=== PATIENT | female | born 1995 ===

== ENCOUNTER 2025-02-18 16:39 | Inpatient (IN) | payer BC, OTHER ==
[~2025-02-18] VITALS: Ht 170.2 cm; Wt 115.0 kg
[2025-02-18 16:46] VITALS: BP 140/86
[2025-02-18] MEDS ORDERED: Calcium Carbonate 500 MG Tab Chew PO SCH (17:25)
[2025-02-18] MEDS ORDERED: Misoprostol 200 MCG Tab BC PRN (17:25)
[2025-02-18] MEDS ORDERED: Tranexamic Acid 100 ML IV SCH (17:25)
[2025-02-18] MEDS ORDERED: Lactated Ringer's 1,000 ML IV PRN (17:25)
[2025-02-18] MEDS ORDERED: OXYTOCIN/RINGER'S LACTATE 500 ML IV PRN (17:25)
[2025-02-18] MEDS ORDERED: Misoprostol 200 MCG Tab PR PRN (17:25)
[2025-02-18] MEDS ORDERED: Lactated Ringer's 1,000 ML IV SCH ×2 (17:25)
[2025-02-18] MEDS ORDERED: Acetaminophen 500 MG Tab PO PRN (17:25)
[2025-02-18] MEDS ORDERED: Carboprost Tromethamine 250 MCG/ML 1ML Amp IM PRN (17:25)
[2025-02-18] MEDS ORDERED: FentaNYL Citrate 50 MCG/ML 2 ML Injection IV PRN (17:25)
[2025-02-18] MEDS ORDERED: Methylergonovine Maleate 0.2MG / ML 1ML Amp IM PRN (17:25)
[2025-02-18] MEDS ORDERED: Ondansetron HCl 2 MG / ML 2ML Vial IV PRN (17:25)
[2025-02-18] MEDS ORDERED: Oxytocin 10 Unit / ML Vial IM PRN (17:25)
[2025-02-18] MEDS ORDERED: FentaNYL 2mcg/ml-Bup 0.1% Epd 250 ML EPI PRN (17:25)
[2025-02-18] MEDS ORDERED: ePHEDrine Sulfate 50 MG/ML 1ML Injection XX PRN (17:25)
[2025-02-18 18:00] VITALS: BP 129/88
[2025-02-18 18:11] LABS: BASOPHILS ABSOLUTE AUTO 0.03 K/mm3 (0.00-0.23); BASOPHILS PERCENT AUTO 0 % (0-2); EOSINOPHILS ABSOLUTE AUTO 0.16 K/mm3 (0.00-0.68); EOSINOPHILS PERCENT AUTO 2 % (0-6); Hematocrit 38.8 % (33.0-51.0); Hemoglobin 13.3 g/dL (11.5-16.0); IMMATURE GRAN ABSOLUTE AUTO 0.03 K/mm3 (0.00-0.10); IMMATURE GRAN PERCENT AUTO 0 % (0-1); LYMPHOCYTES ABSOLUTE AUTO 2.71 K/mm3 (0.84-5.20); LYMPHOCYTES PERCENT AUTO 25 % (21-46); MONOCYTES ABSOLUTE AUTO 0.83 K/mm3 (0.16-1.47); MONOCYTES PERCENT AUTO 8 % (4-13); Mean Corpuscular HGB 29.4 pg (26.0-34.0); Mean Corpuscular HGB Conc 34.3 g/dL (31.5-36.5); Mean Corpuscular Volume 86 fL (80-100); Mean Platelet Volume 12.6 fL (9.1-12.4); NEUTROPHILS ABSOLUTE AUTO 7.24 K/mm3 (1.96-9.15); NEUTROPHILS PERCENT AUTO 66 % (41-73); Platelet Count 200 K/mm3 (150-400); RDW Coefficient Variation 12.5 % (11.7-14.2); RDW Standard Deviation 39.2 fL (35.1-46.3); Red Blood Cell Count 4.52 M/mm3 (3.80-5.20)
[2025-02-18 19:10] VITALS: BP 127/87
[2025-02-18 20:14] VITALS: BP 126/79
[2025-02-18 21:49] VITALS: BP 113/70
[2025-02-18 23:07] VITALS: BP 117/72
[2025-02-18] MEDS ORDERED: OXYTOCIN/RINGER'S LACTATE 500 ML IV SCH (23:20)
[2025-02-19] VITALS (56 sets, daily range): BP systolic 85–148; BP diastolic 46–93
[2025-02-19] MEDS ORDERED: Ampicillin Sod 2,000 MG in NS 100 ML IV SCH (07:30)
[2025-02-19] MEDS ORDERED: Ibuprofen 400 MG Tab PO PRN (09:40)
[2025-02-19] MEDS ORDERED: Benzocaine Topical Anesthetic Spray 60GM TOP PRN (09:40)
[2025-02-19] MEDS ORDERED: Witch Hazel/Glycerin PADS TOP PRN (09:40)
[2025-02-19] MEDS ORDERED: OXYTOCIN/RINGER'S LACTATE 500 ML IV SCH (09:40)
[2025-02-19] MEDS ORDERED: Acetaminophen 325 MG TABLET PO PRN (09:45)
[2025-02-19] MEDS ORDERED: Lactated Ringer's 1,000 ML IV SCH (09:45)
[2025-02-19] MEDS ORDERED: Methylergonovine Maleate 0.2MG / ML 1ML Amp IM PRN (09:45)
[2025-02-19] MEDS ORDERED: Misoprostol 200 MCG Tab PR PRN (09:45)
[2025-02-19] MEDS ORDERED: Ketorolac Tromethamine 30mg Vial IV SCH (12:00)
[2025-02-20 00:03] VITALS: BP 120/64
[2025-02-20] MEDS ORDERED: Ketorolac Tromethamine 30mg Vial IV ONE (02:45)
[2025-02-20 03:04] VITALS: BP 107/59
[2025-02-20 06:08] LABS: BASOPHILS ABSOLUTE AUTO 0.05 K/mm3 (0.00-0.23); BASOPHILS PERCENT AUTO 0 % (0-2); EOSINOPHILS ABSOLUTE AUTO 0.23 K/mm3 (0.00-0.68); EOSINOPHILS PERCENT AUTO 2 % (0-6); Hematocrit 34.8 % (33.0-51.0); Hemoglobin 11.6 g/dL (11.5-16.0); IMMATURE GRAN ABSOLUTE AUTO 0.04 K/mm3 (0.00-0.10); IMMATURE GRAN PERCENT AUTO 0 % (0-1); LYMPHOCYTES PERCENT AUTO 27 % (21-46); MONOCYTES ABSOLUTE AUTO 0.84 K/mm3 (0.16-1.47); MONOCYTES PERCENT AUTO 8 % (4-13); Mean Corpuscular HGB 29.6 pg (26.0-34.0); Mean Corpuscular HGB Conc 33.3 g/dL (31.5-36.5); Mean Corpuscular Volume 89 fL (80-100); Mean Platelet Volume 12.7 fL (9.1-12.4); NEUTROPHILS ABSOLUTE AUTO 6.97 K/mm3 (1.96-9.15); NEUTROPHILS PERCENT AUTO 63 % (41-73); Platelet Count 170 K/mm3 (150-400); RDW Coefficient Variation 12.7 % (11.7-14.2); Red Blood Cell Count 3.92 M/mm3 (3.80-5.20); White Blood Cell Count 11.13 K/mm3 (4.00-11.30)
[2025-02-20 07:28] VITALS: BP 128/79
[2025-02-20] MEDS ORDERED: Prenatal Vit/FE Fumarate/FA 1 Tab PO SCH (09:00)
[2025-02-20 13:03] VITALS: BP 129/83
== END 2025-02-20 13:22 | disposition home or self-care (01) | DRG 807 ==
LOC: OBS 16:39 → BC 16:39 → OBS 17:10 → BC 17:11
PROVIDERS: ADMIT Obstetrics & Gynecology
PROC: 10E0XZZ Delivery of Products of Conception, External Approach (ICD-10-PCS; principal; 2025-02-19)
PROC: 0KQM0ZZ Repair Perineum Muscle, Open Approach (ICD-10-PCS; 2025-02-19)
DX: O42.02 Full-term premature rupture of membranes, onset of labor within 24 hours of rupture (principal); Z37.0 Single live birth; O70.1 Second degree perineal laceration during delivery; Z98.890 Other specified postprocedural states; O99.214 Obesity complicating childbirth; E66.01 Morbid (severe) obesity due to excess calories
CPT/HCPCS: 36415; 51702; 82947; 85025; 86850; 86900; 86901; 87210; A9270; J0290; J1885; J2590; J3010; J7120